=== PATIENT | female | born 1985 | race Caucasian/White ===

== ENCOUNTER 2018-04-18 19:45 | Emergency (ER) | payer BC ==
[~2018-04-18] VITALS: Ht 160 cm; Wt 61.2 kg
[2018-04-18] MEDS ORDERED: diphenhydrAMINE 50 MG/1 ML VIAL ONE (19:54)
[2018-04-18] MEDS ORDERED: LORAZEPAM 2 MG/1 ML VIAL ONE (19:54)
[2018-04-18] MEDS ORDERED: diphenhydrAMINE 50 MG/1 ML VIAL IM ONE (20:00)
[2018-04-18] MEDS ORDERED: LORAZEPAM 2 MG/1 ML VIAL IV ONE (20:00)
[2018-04-18] MEDS ORDERED: IV NORMAL SALINE 1000 ML BAG IV ONE (20:00)
[2018-04-18] MEDS ORDERED: TIZANIDINE HCL 4 MG TABLET (20:01)
[2018-04-18] MEDS ORDERED: COGENTIN PO (20:02)
--- NOTE | 2018-04-18 20:52 | NUR ---
IV removed. Catheter intact and site benign. Pressure and 4x4 gauze applied to site. No bleeding noted.
--- NOTE | 2018-04-18 20:52 | NUR ---
Patient discharged to home in stable conditon. Written and verbal after care instructions given. Patient verbalizes understanding of instructions.
[2018-04-18 20:55] VITALS: BP 129/82
== END 2018-04-18 20:57 | disposition home or self-care (01) ==
LOC: ER 19:47
DX: G24.02 Drug induced acute dystonia (principal); T43.4X5A Adverse effect of butyrophenone and thiothixene neuroleptics, initial encounter; Z88.8 Allergy status to other drugs, medicaments and biological substances; Y92.89 Other specified places as the place of occurrence of the external cause
CPT/HCPCS: 93005; 96372; 96374; 99284; J1200; J2060; A4663

== ENCOUNTER 2023-11-26 02:08 | Emergency (ER) | payer BC ==
[~2023-11-26] VITALS: Ht 160 cm; Wt 64.9 kg
[~2023-11-26 02:08] MED LIST: COGENTIN PO; TIZANIDINE HCL 4 MG TABLET
[2023-11-26] MEDS ORDERED: IV NS 1000 ML 1,000 ML IV ONE (03:15)
[2023-11-26 04:01] VITALS: BP 100/64; TEMP 98.1; O2SAT 99
== END 2023-11-26 04:03 | disposition home or self-care (01) ==
LOC: ER 02:20
DX: H53.9 Unspecified visual disturbance (principal); F31.9 Bipolar disorder, unspecified; Z98.890 Other specified postprocedural states; Z79.899 Other long term (current) drug therapy; Z88.1 Allergy status to other antibiotic agents
CPT/HCPCS: 93005; A4606; A4663